=== PATIENT | male | born 1970 | race American Indian/Alaskan Native ===

== ENCOUNTER 2020-03-09 08:40 | Emergency (ER) | payer MEDICARE ==
[2020-03-09 09:52] LABS: Basophils # (Auto) 0.1 K/mm3 (0.0-0.1); Basophils % (Auto) 1.2 % (0.0-1.8); Eosinophils # (Auto) 0.1 K/mm3 (0.0-0.4); Eosinophils % (Auto) 1.5 % (0.0-4.3); Hemoglobin 11.1 gm/dl (11.8-15.2); Lymphocytes # (Auto) 2.5 K/mm3 (1.2-5.4); Mean Corpuscular HGB Conc 34 % (32-34); Mean Corpuscular Volume 84 fl (84-94); Monocytes # (Auto) 0.8 K/mm3 (0.0-0.8); Monocytes % (Auto) 7.8 % (0.0-7.3); Platelet Count 371 K/mm3 (140-440); Red Blood Count 3.95 M/mm3 (3.65-5.03); Red Cell Distribution Width 15.2 % (13.2-15.2)
--- NOTE | 2020-03-09 09:57 | Emergency Department Report ---
HPI - General Chief Complaint: High BP Time Seen by Provider: 03/09/20 09:23 - HPI HPI: This is a 49-year-old -[place] male presents to the emergency department via EMS from [facility] with a complaint of elevated blood pressure, headache, and previous chest discomfort, that started this morning. Patient is currently at [facility] secondary to suicidal ideations and a history of PTSD and bipolar disorder. He also has a past medical history of hypertension and diabetes. He is a tobacco smoker but denies any illicit drug use. Patient was found to have a blood pressure of 190/93, along with the other complaints, and was sent in for further evaluation. Currently the patient denies any chest pain and says that his headache is generalized and 6 out of 10 in intensity. He denies any vision change, slurred speech, numbness or paresthesias, or any neurological deficits. His main complaint at this time is getting breakfast. ED Past Medical Hx - Past Medical History Previous Medical History?: Yes Hx Hypertension: Yes Hx Diabetes: Yes Hx Psychiatric Treatment: Yes (Bipolar, PTSD, MDD) - Surgical History Past Surgical History?: No - Social History Smoking Status: Never Smoker Substance Use Type: None ED Review of Systems ROS: Stated complaint: HPB Other details as noted in HPI Comment: All other systems reviewed and negative Constitutional: denies: chills, fever Eyes: denies: as per HPI, vision change ENT: denies: ear pain, throat pain Respiratory: denies: cough, shortness of breath Cardiovascular: chest pain (Resolved). denies: palpitations Gastrointestinal: denies: abdominal pain, vomiting Genitourinary: denies: dysuria, discharge Musculoskeletal: denies: back pain, arthralgia Skin: denies: rash, lesions Neurological: denies: numbness, paresthesias Physical Exam - Physical Exam Vital Signs: Vital Signs 03/09/20 08:58 Pulse Rate 67 Respiratory 14 Rate Blood Pressure 172/96 [Right] O2 Sat by Pulse 100 Oximetry Physical Exam: GENERAL: The patient is well-developed well-nourished. HENT: Normocephalic. Atraumatic. Patient has moist mucous membranes. EYES: Extraocular motions are intact. No nystagmus. NECK: Supple. Trachea is midline. CHEST/LUNGS: Clear to auscultation. There is no respiratory distress noted. HEART/CARDIOVASCULAR: Regular. There is no tachycardia. ABDOMEN: Abdomen is soft, nontender. Patient has normal bowel sounds. SKIN: Skin is warm and dry. NEURO: The patient is awake, alert, and oriented. The patient is cooperative. The patient has no focal neurologic deficits. Normal speech. Cranial nerves II through XII grossly intact. MUSCULOSKELETAL: There is no tenderness or deformity. There is no evidence of acute injury. ED Course Vital Signs 03/09/20 08:58 Pulse Rate 67 Respiratory 14 Rate Blood Pressure 172/96 [Right] O2 Sat by Pulse 100 Oximetry ED Medical Decision Making - Lab Data Result diagrams: 03/09/20 09:35 03/09/20 09:35 - EKG Data -: EKG Interpreted by Ut EKG shows normal: sinus rhythm, axis, intervals, QRS complexes, ST-T waves Rate: bradycardia (59 bpm) - EKG Data When compared to previous EKG there are: previous EKG unavailable Interpretation: normal EKG - Radiology Data Radiology results: report reviewed CT head/brain wo con INDICATION: headache. TECHNIQUE: Routine CT head without contrast. All CT scans at this location are performed using CT dose reduction for ALARA by means of automated exposure control. COMPARISON: None. FINDINGS: BRAIN / INTRACRANIAL CONTENTS: No acute hemorrhage, mass effect, midline shift, or hydrocephalus. No appreciable acute large territorial or lacunar infarct. No chronic infarct or focal atrophy. Normal brain volume and ventricular/sulcal size for age. ORBITS: No significant abnormality of visualized orbits. SINUSES / MASTOIDS: No significant abnormality of visualized sinuses and mastoid air cells. ADDITIONAL FINDINGS: None. IMPRESSION: 1. No acute intracranial abnormality. - Medical Decision Making This patient was sent in from his psychiatric facility for evaluation of his hypertension and a headache. The patient also says that he had some previous chest discomfort but that has since resolved without any intervention. A CT sca n of the head was done that does not show any bleed, shift, mass, ischemia, or any other acute process. On examination he does not have any focal, motor or sensory deficits, and his cranial nerves have been intact. An EKG was done that does not show any morphology consistent with ST elevation DC. Labs have been unremarkable including CBC, metabolic panel, troponin and TSH level. Patient was given a dose of Tylenol for his headache, Catapres for his blood pressure. The patient's main complaint throughout his ED course is wanting to eat food. At different points the patient was seen resting comfortably on his gurney. For all these reasons the patient appears safe for discharge back to facility at this time. He has been instructed to try and stay away from foods that are high in salt, caffeinated products, take his normal blood pressure medications, and keep a blood pressure log. He will return to the emergency department with any worsening of his symptoms or any acute distress. Critical Care Time: No Critical care attestation.: If time is entered above; I have spent that time in minutes in the direct care of this critically ill patient, excluding procedure time. ED Disposition Clinical Impression: Medical clearance for psychiatric admission Headache Qualifiers: Headache type: unspecified Headache chronicity pattern: unspecified pattern Intractability: not intractable Qualified Code(s): R51 - Headache Hypertension Qualifiers: Hypertension type: essential hypertension Qualified Code(s): I10 - Essential (primary) hypertension Disposition: - TO HOME OR SELFCARE Is pt being admited?: No Condition: Stable Instructions: Acute Headache (ED), Hypertension (ED) Additional Instructions: Take your medications as prescribed. Try to stay away from foods that are high in salt and caffeinated products. Keep a blood pressure log. Follow-up with your primary care physician as soon as you are able to do so. Return to the emergency department with any worsening of your symptoms or any acute distress. Referrals: [facility] [Other] - 3-5 Days Time of Disposition: 11:35
[2020-03-09 10:15] LABS: BUN/Creatinine Ratio 14; Blood Urea Nitrogen 14 mg/dL (9-20); Calcium 9.3 mg/dL (8.4-10.2); Hemolysis Index 3
--- NOTE | 2020-03-09 10:17 | Cat Scan Report ---
CT head/brain wo con INDICATION: headache. TECHNIQUE: Routine CT head without contrast. All CT scans at this location are performed using CT dos e reduction for ALARA by means of automated exposure control. COMPARISON: None. FINDINGS: BRAIN / INTRACRANIAL CONTENTS: No acute hemorrhage, mass effect, midline shift, or hydrocephalus. No appreciable acute large territorial or lacunar infarct. No chronic infarct or focal atrophy. Normal b rain volume and ventricular/sulcal size for age. ORBITS: No significant abnormality of visualized orbits. SINUSES / MASTOIDS: No significant abnormality of visualized sinuses and mastoid air cells. ADDITIONAL FINDINGS: None. IMPRESSION: 1. No acute intracranial abnormality. Signer Name: Jarvis Ramsay MD Signed: 03/09/2020 10:13 AM Workstation Name: [id number]
[2020-03-09] MEDS ORDERED: IBUPROFEN 800 MG TAB PO ONE (10:28)
[2020-03-09] MEDS ORDERED: cloNIDine 0.2 MG TAB PO ONE (10:33)
[2020-03-09 13:20] VITALS: BP 158/86
== END 2020-03-09 14:31 | disposition home or self-care (01) ==
LOC: ED 08:40
DX: I10 Essential (primary) hypertension (principal); R51 Headache; E11.9 Type 2 diabetes mellitus without complications; F31.9 Bipolar disorder, unspecified; Z04.6 Encounter for general psychiatric examination, requested by authority; Z79.899 Other long term (current) drug therapy; Z91.011 Allergy to milk products; Z91.018 Allergy to other foods
CPT/HCPCS: 36415; 70450; 80048; 84443; 84484; 85025; 93005